=== PATIENT | female | born 1990 | race African-American/Black ===

== ENCOUNTER 2025-01-16 21:25 | Emergency (ER) | payer OTHER ==
[~2025-01-16] VITALS: Ht 170.2 cm; Wt 59.0 kg
[2025-01-16 21:33] VITALS: O2SAT 99
[2025-01-16] MEDS ORDERED: LIDO-53 TP (23:09)
[2025-01-16 23:40] VITALS: BP 109/86; PULSE 72; RESP 18; TEMP 36.8; O2SAT 100
== END 2025-01-16 23:41 | disposition home or self-care (01) ==
LOC: ER 21:25
DX: M54.50 Low back pain, unspecified (principal); V89.2XXA Person injured in unspecified motor-vehicle accident, traffic, initial encounter; Y93.89 Activity, other specified; Y92.410 Unspecified street and highway as the place of occurrence of the external cause; Y99.8 Other external cause status
CPT/HCPCS: 72100; 99283